=== PATIENT | male | born 1975 | race Caucasian/White ===

== ENCOUNTER 2017-08-15 08:33 | Emergency (ER) | payer OTHER, MEDICAID ==
[~2017-08-15 08:33] MED LIST: LORazepam 2 MG/ML INJ IVP ONE
--- NOTE | 2017-08-15 08:40 | EDPHY ---
H & P Time Seen by Provider: 08/15/17 08:39 HPI/ROS: Chief complaint. Seizure HPI. Patient is a 42-year-old male here by EMS after having a seizure on the sidewalk outside of his work at [employer]. 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 He was somewhat confused afterwards but gradually was able to answer questions for paramedics. He then had a 2nd seizure in the ambulance just prior to arrival. Blood sugar was checked and was adequate. Apparently the patient has had a seizure disorder and takes Dilantin and possibly another medication for seizure control. He told the paramedics that he has a seizure about once per year. ROS Constitutional. no fever/chills, no weakness Eyes. no problems with vision ENT. no sore throat, no nasal drainage Cardiovascular. no chest pain Respiratory. no shortness of breath, no cough Abdominal. no abdominal pain, no nausea/vomiting, no diarrhea . no problems urinating MS. no calf pain/swelling, no neck/back pain, no joint pain Skin. no rash Lymph. no swollen glands Neuro. Seizure Past Medical/Surgical History: Autism, epilepsy Social History: Single, nonsmoker, no alcohol Smoking Status: Never smoked Physical Exam: General Appearance: Seizing well-developed male Eyes: Pupils equal and round no pallor or injection. ENT, Mouth: Mucous membranes are moist. Respiratory: There are no retractions, lungs are clear to auscultation. Cardiovascular: Regular rate and rhythm. Gastrointestinal: Abdomen is soft and nontender, no masses, bowel sounds normal. Neurological: Seizing. Appears to be moving all extremities Skin: Warm and dry, no rashes. Musculoskeletal: Neck is supple nontender. Extremities symmetrical, full range of motion. Psychiatric: Seizing Constitutional: Initial Vital Signs Temperature (C) 36.4 C 08/15/17 08:44 Heart Rate 107 H 08/15/17 08:44 Respiratory Rate 22 H 08/15/17 08:44 Blood Pressure 154/82 H 08/15/17 08:44 O2 Sat (%) 98 08/15/17 08:44 O2 Delivery Mode Room Air O2 (L/minute) 12 Allergies/Adverse Reactions: No Known Allergies Allergy (Verified 11/13/15 09:58) Home Medications: Medication Instructions Recorded Keppra 1000 mg 11/20/15 Medical Decision Making - Diagnostics EKG Interpretation: EKG interpreted by me shows sinus tachycardia with normal interval and axis. QRS is normal there is no significant ST elevation or depression. No arrhythmia. The rate is 101. Imaging Results: Imaging Impressions Chest X-Ray 08/15/17 08:47 Impression: Query airways disease with no significant acute cardiopulmonary abnormality identified. Head CT 08/15/17 08:47 Impression: No evidence for acute intracranial abnormality. Stable atrophy of the cerebellum. Results called and discussed with Sylvester Underwood on 08/15/2017 at 9:32 a.m. cerebellar atrophy. Nonacute otherwise. Reviewed by me and discussed with Dr. Kong One-view chest x-ray interpreted by me is normal Procedures: Seizure precautions. IV Ativan 2 mg. Keppra 1000 mg IV. Fosphenytoin 500 dilantin equivalents IV. ED Course/Re-evaluation: I called and reviewed patient's meds with our pharmacy who checked with [facility]. The patient apparently takes Dilantin 100 mg 3 times daily and Keppra 500 mg twice daily. Re-evaluation 9:30 a.m.. Patient is alert and talking. He says no recent head injury or illness. He claims compliance with his regular medications and agrees that he takes Keppra and Dilantin daily. Denies drug or alcohol intake. Re-evaluation at 10:25 a.m. And patient is resting comfortably. Alert and talking I consulted and discussed the case with Dr. Natasha Elder neurologist at [facility] [address]. She recommends continuing the patient on his regular medications. She will discussed the case with patient's regular neurologist who was not available today. ([phone]) Differential Diagnosis: Seizure in patient with longstanding seizure disorder. It appears that his Dilantin level was low. I considered intracranial bleeding. No evidence for infection and patient is afebrile. He is no longer postictal. He is neurologically intact. No further seizures. - Data Points Laboratory Results: Laboratory Results 08/15/17 08:34 08/15/17 08:34 08/15/17 08/15/17 08:34 08:34 WBC 6.97 10^3/uL 10^3/uL (3.80-9.50) RBC 5.51 10^6/uL 10^6/uL (4.40-6.38) Hgb 17.1 g/dL g/dL (13.7-17.5) Hct 50.2 % % (40.0-51.0) MCV 91.1 fL fL (81.5-99.8) MCH 31.0 pg pg (27.9-34.1) MCHC 34.1 g/dL g/dL (32.4-36.7) RDW 12.7 % % (11.5-15.2) Plt Count 236 10^3/uL 10^3/uL (150-400) MPV 8.6 fL L fL (8.7-11.7) Neut % (Auto) 36.1 % L % (39.3-74.2) Lymph % (Auto) 53.2 % H % (15.0-45.0) [place] % (Auto) 7.0 % % (4.5-13.0) Eos % (Auto) 1.9 % % (0.6-7.6) Baso % (Auto) 0.4 % % (0.3-1.7) Nucleat RBC Rel Count 0.0 % % (0.0-0.2) Absolute Neuts (auto) 2.51 10^3/uL 10^3/uL (1.70-6.50) Absolute Lymphs (auto) 3.71 10^3/uL H 10^3/uL (1.00-3.00) Absolute Monos (auto) 0.49 10^3/uL 10^3/uL (0.30-0.80) Absolute Eos (auto) 0.13 10^3/uL 10^3/uL (0.03-0.40) Absolute Basos (auto) 0.03 10^3/uL 10^3/uL (0.02-0.10) Absolute Nucleated RBC 0.00 10^3/uL 10^3/uL (0-0.01) Immature Gran % 1.4 % H % (0.0-1.1) Immature Gran # 0.10 10^3/uL 10^3/uL (0.00-0.10) Sodium 144 mEq/L mEq/L (135-145) Potassium 4.2 mEq/L mEq/L (3.3-5.0) Chloride 105 mEq/L mEq/L (97-110) Carbon Dioxide 17 mEq/l L mEq/l (22-31) Anion Gap 22 mEq/L H mEq/L (8-16) BUN 18 mg/dL mg/dL (7-23) Creatinine 0.7 mg/dL mg/dL (0.7-1.3) Estimated GFR > 60 Glucose 113 mg/dL H mg/dL (70-100) Calcium 9.2 mg/dL mg/dL (8.5-10.4) Phenytoin 5.6 mcg/mL L mcg/mL (10.0-20.0) Medications Given: Discontinued Medications Sodium Chloride (Ns) 1,000 mls @ 0 mls/hr IV ONCE ONE; Wide Open PRN Reason: Protocol Stop: 08/15/17 08:48 Last Admin: 08/15/17 09:00 Dose: 1,000 mls Fosphenytoin Sodium 500 mgpe/ (Sodium Chloride) 60 mls @ 180 mls/hr IV ONCE ONE Stop: 08/15/17 09:49 Last Admin: 08/15/17 09:29 Dose: 60 mls Levetiracetam 1,000 mg/ Sodium (Chloride) 110 mls @ 440 mls/hr IV EDNOW ONE Stop: 08/15/17 09:44 Last Admin: 08/15/17 09:54 Dose: 110 mls Lorazepam (Ativan Injection) 2 mg IVP EDNOW ONE Stop: 08/15/17 08:34 Last Admin: 08/15/17 08:33 Dose: 2 mg Departure - Departure Disposition: Home, Routine, Self-Care Clinical Impression: Seizure disorder Condition: Good Instructions: Epilepsy (ED) Additional Instructions: Continue to take your seizure medications as directed. Easy activity and avoid driving and other activities that could result in injury if you had a seizure Follow up with your regular neurologist in the next 2-3 days for further evaluation and possible medication adjustment. Return for further seizures, fever, vomiting. Call today and make a follow-up appointment with Dr. Miller Referrals: Patient,NotPresent [Primary Care Provider] - As per Instructions
[2017-08-15] MEDS ORDERED: levETIRAcetam 1000MG/NACL 100 ML IV ONE (08:47)
[2017-08-15] MEDS ORDERED: NS 1,000 ML IV ONE (08:47)
[2017-08-15] MEDS ORDERED: FOSPHENYTOIN SODIUM 500 MGPE/10 ML VIAL IVP ONE (08:48)
--- NOTE | 2017-08-15 08:56 | CPEKG ---
Heart Rate: 101 RR Interval: 594 P-R Interval: 160 QRSD Interval: 88 QT Interval: 364 QTC Interval: 472 P Farina: 66 QRS Farina: 87 T Wave Farina: 62 EKG Severity - OTHERWISE NORMAL ECG - EKG Impression: SINUS TACHYCARDIA Electronically Signed By: Sylvester Underwood 15-Aug-2017 10:51:01
[2017-08-15 08:59] LABS: PLATELET COUNT 236 10^3/uL (150-400)
[2017-08-15] MEDS ORDERED: FOSPHENYTOIN IV ONE (09:30)
[2017-08-15] MEDS ORDERED: levETIRAcetam 1,000 MG in NS 100 ML IV ONE (09:30)
[2017-08-15] MEDS ORDERED: NS IV ONE (09:30)
[2017-08-15 13:11] VITALS: BP 113/76
--- NOTE | 2017-08-15 16:13 | ASDISCHSUM ---
Discharge Information Plan Status:Home with No Needs Medically Cleared to Leave: Discharge Date:08/15/2017 12:55 PM CM D/C Disposition:Home, Routine, Self-Care ADT D/C Disposition:Home, Routine, Self-Care Projected Discharge Date:08/15/2017 12:55 PM Transportation at D/C:Family Discharge Delay Reason: Follow-Up Date:08/15/2017 12:55 PM Discharge Slot: Final Diagnosis: Placement Information Patient Contact Information Contact Name:PRERNA Relationship:Mother Address:[address] [place] [address] City:[facility] Phone: [facility] Code:[place] [address] Email: Financial Information Financial Class:HMO and PPO Plans Primary Plan Desc:[employer]ARIDE[employer]LO [employer] PPO [employer] Primary Plan Number:[id number] Secondary Plan Desc:SANDY GOODMAN Secondary Plan Number:[id number] Assessment Information [facility] CM Progress Note CM Note CM Note Notes: Pt presented to the ED via EMS after being found on the sidewalk on the campus after pt appeared to have a seizure. Pt was on his way to work at [employer]. Pt has autism and epilepsy. Pt's brother, Madan ([phone]) and his , Ilana Ennis ([phone]) arrived to the ED and expressed concerns related to patient's ability to self-administer his anti-seizure medications. Pt's neurologist is Dr Miller at [facility] ([phone]) and he started tapering pt's Dilantin down in hopes to get his seizures managed only by Keppra. Spoke w/Madan and Ilana. Madan and pt's mother, Abby, are pt's legal guardians. Pt lives in a house where he rents a room. Madan states it is not a prison but there is a "house master" or "caregiver" named Jay that is supposed to be ensuring pt is getting his Dilantin and Keppra as prescribed. There is concern over whether Jay is helping pt takes his medications. Pt's Dilantin level are lower than expected even while being on a taper; and they also said they went to pt's room and his medications were in his room and disorganized. Madan and Ilana had conflicting perspectives on pt's ability to take his own medications and care for himself, and also on whether Jay was providing adequate care/assistance as they would expect. Lokesh live in [place] and they are very supportive and involved w/pt (they go to his appts with Dr Miller w/him, take him for outings on the weekends, etc.) and pt's mother Abby lives in [place]. Pt does not have a PCP and does not receive any other skilled or non-skilled homecare assistance. This CM provided pt, Madan and Ilana with a [facility] pamphlet and various lists of non-skilled and skilled private pay homecare services. This CM called and left a voicemail for Dr Miller's RN in order to discuss concerns and outpatient follow-up but have not heard back. CM available for further assistance if needed. Date Signed: 08/15/2017 04:12 PM Electronically Signed By:Candis Bowden RN Intervention Information Intervention Type:Community Resources Date of Service:08/15/2017 03:16 PM Patient Type:Emergency Room Staff Member:ZIA Bowden [place] Hours:0.5 Discipline:Licensing Director Severity: Comment: Intervention Type:Post Acute Communication Date of Service:08/15/2017 03:16 PM Patient Type:Emergency Room Staff Member:ZIA Bowden [place] Hours:0.25 Discipline:Licensing Director Severity: Comment:
== END 2017-08-15 12:55 | disposition home or self-care (01) ==
LOC: EDUNIT#
DX: G40.909 Epilepsy, unspecified, not intractable, without status epilepticus (principal); E86.9 Volume depletion, unspecified
CPT/HCPCS: 96365; J1953; Q2009

== ENCOUNTER 2018-07-01 23:16 | Inpatient (IN) | payer OTHER, MEDICAID ==
[2018-07-01] MEDS ORDERED: NS 1,000 ML IV ONE (23:47)
[2018-07-01 23:53] LABS: PLATELET COUNT 246 10^3/uL (150-400)
--- NOTE | 2018-07-02 00:11 | EDPHY ---
H & P Stated Complaint: SEIZURE Time Seen by Provider: 07/01/18 23:50 HPI/ROS: HPI The patient presents with seizure, brought in by ambulance from his home. History is obtained by his brother at the bedside. The patient has a history of seizure disorder which is longstanding as well as developmental delay. He takes Keppra and Dilantin for this. His last seizure was about 9 months ago. While his Keppra dose has remain unchanged for the last 9 months, his Dilantin dose has decreased as part of a taper. Three days ago he started taking 30 mg of Dilantin twice daily, previously for the last 3 weeks he was taking 30 mg q.a.m. And 60 mg Q p.m.. Family thinks he may have had a seizure last night because there was some blood next to his bed, however he was not postictal, is easily got up and went to work today. In between about 530 and 6:30 p.m. Tonight the patient had a seizure which was witnessed by family members and was tonic clonic. He awoke and was lucid afterwards, was able to take a dose of Ativan at 7:00 p.m.. At 10:00 p.m. He had a 2nd seizure again tonic clonic for several minutes, he had oral trauma. At this time, paramedics were called. The patient has had diarrhea last night and this morning it has not been eating or drinking much. He also lost his wallet recently and has been stressed about this.. REVIEW OF SYSTEMS 10 systems were reviewed and negative with the exception of the elements mentioned in the history of present illness. PMHx: Seizure disorder, developmental delay, followed by at [facility] Hx: Lives at home with his family, works at [employer] PHYSICAL General Appearance: Tired appearing in no acute distress Eyes: Pupils equal and round no pallor or injection ENT, Mouth: Mucous membranes very dry with dried blood on his left cheek with no active bleeding Respiratory: There are no retractions, lungs are clear to auscultation Cardiovascular: Regular rate and rhythm Gastrointestinal: Abdomen is soft and non-tender, no masses, bowel sounds normal Neurological: A&O, moves all extremities Skin: Warm and dry, no rashes Musculoskeletal: Neck is supple non tender Extremities: symmetrical, full range of motion Psychiatric: Patient is sleepy, not agitated Source: Family, Old records Exam Limitations: Clinical condition, Physical impairment - Personal History Current Tetanus Diphtheria and Acellular Pertussis (TDAP): Yes Tetanus Vaccine Date: within 10 years - Medical/Surgical History Hx Asthma: No Hx Chronic Respiratory Disease: No Hx Diabetes: No Hx Cardiac Disease: No Hx Renal Disease: No Hx Cirrhosis: No Hx Alcoholism: No Hx HIV/AIDS: No Hx Splenectomy or Spleen Trauma: No Other PMH: Epilepsy- has caregiver, Developmental delay - Social History Smoking Status: Never smoked Constitutional: Initial Vital Signs Temperature (C) 36.7 C 07/01/18 23:21 Heart Rate 98 07/01/18 23:21 Respiratory Rate 16 07/01/18 23:21 Blood Pressure 111/62 07/01/18 23:21 O2 Sat (%) 96 07/01/18 23:21 O2 Delivery Mode Room Air Allergies/Adverse Reactions: No Known Allergies Allergy (Verified 11/13/15 09:58) Home Medications: Medication Instructions Recorded Dilantin 07/01/18 Lorazepam 07/01/18 levETIRACETAM 07/01/18 Medical Decision Making Differential Diagnosis: This is a 43-year-old man with seizure disorder and developmental delay who lives at home with family who presents with 2 seizures tonight with lucid interval in between. Patient is on the Dilantin taper and had a change in does 3 days ago. He also has had some diarrhea over the last 2 days and has decreased p.o. Intake. Here, the patient has not had any further seizures. I will give him IV fluids and check basic labs. 12:45 a.m.- The patient has had another seizure here in the emergency department lasting for several minutes. Ativan 2 mg administered. Patient's labs have resulted for the most part and his phenytoin level is undetectable as suspected. I will load him with phenytoin as well. Patient's labs demonstrate undetectable phenytoin level, Keppra level is pending , other labs including CBC and chemistries are unremarkable. Given that this is his 3rd seizure today, I will admit him to the hospitalist for further care and monitoring. He did have lucid intervals between the seizures so I do not think he is in status epilepticus at this point. I suspect tapering his phenytoin caused his seizures today. - Data Points Laboratory Results: Laboratory Results 07/01/18 23:20 07/01/18 23:20 07/01/18 07/01/18 07/01/18 23:20 23:20 23:20 WBC 13.47 10^3/uL H 10^3/uL (3.80-9.50) RBC 5.12 10^6/uL 10^6/uL (4.40-6.38) Hgb 15.9 g/dL g/dL (13.7-17.5) Hct 45.5 % % (40.0-51.0) MCV 88.9 fL fL (81.5-99.8) MCH 31.1 pg pg (27.9-34.1) MCHC 34.9 g/dL g/dL (32.4-36.7) RDW 12.6 % % (11.5-15.2) Plt Count 246 10^3/uL 10^3/uL (150-400) MPV 8.8 fL fL (8.7-11.7) Neut % (Auto) 79.0 % H % (39.3-74.2) Lymph % (Auto) 14.7 % L % (15.0-45.0) [place] % (Auto) 5.8 % % (4.5-13.0) Eos % (Auto) 0.0 % L % (0.6-7.6) Baso % (Auto) 0.1 % L % (0.3-1.7) Nucleat RBC Rel Count 0.0 % % (0.0-0.2) Absolute Neuts (auto) 10.64 10^3/uL H 10^3/uL (1.70-6.50) Absolute Lymphs (auto) 1.98 10^3/uL 10^3/uL (1.00-3.00) Absolute Monos (auto) 0.78 10^3/uL 10^3/uL (0.30-0.80) Absolute Eos (auto) 0.00 10^3/uL L 10^3/uL (0.03-0.40) Absolute Basos (auto) 0.02 10^3/uL 10^3/uL (0.02-0.10) Absolute Nucleated RBC 0.00 10^3/uL 10^3/uL (0-0.01) Immature Gran % 0.4 % % (0.0-1.1) Immature Gran # 0.05 10^3/uL 10^3/uL (0.00-0.10) Sodium 140 mEq/L mEq/L (135-145) Potassium 4.0 mEq/L mEq/L (3.5-5.2) Chloride 105 mEq/L mEq/L (97-110) Carbon Dioxide 21 mEq/l L mEq/l (22-31) Anion Gap 14 mEq/L mEq/L (6-14) BUN 14 mg/dL mg/dL (7-23) Creatinine 0.8 mg/dL mg/dL (0.7-1.3) Estimated GFR > 60 Glucose 146 mg/dL H mg/dL (70-100) Calcium 9.7 mg/dL mg/dL (8.5-10.4) Phenytoin < 3.0 mcg/mL L mcg/mL (10.0-20.0) Levetiracetam Pending Medications Given: Discontinued Medications Sodium Chloride (Ns) 1,000 mls @ 0 mls/hr IV ONCE ONE; Wide Open PRN Reason: Protocol Stop: 07/01/18 23:48 Last Admin: 07/02/18 00:05 Dose: 1,000 mls Sodium Chloride (Ns) 1,000 mls @ 0 mls/hr IV ONCE ONE; Wide Open PRN Reason: Protocol Stop: 07/02/18 00:41 Last Admin: 07/02/18 00:46 Dose: 1,000 mls Phenytoin Sodium 1,000 mg/ (Sodium Chloride) 120 mls @ 144 mls/hr IV ONCE ONE Stop: 07/02/18 01:34 Last Admin: 07/02/18 01:18 Dose: 120 mls Lorazepam (Ativan Injection) 2 mg IVP EDNOW ONE Stop: 07/02/18 00:41 Last Admin: 07/02/18 00:46 Dose: 2 mg Departure - Departure Disposition: [facility] Acute Clinical Impression: Seizure disorder, Seizures Condition: Fair
[2018-07-02] MEDS ORDERED: LORazepam 2 MG/ML INJ ONE (00:36)
[2018-07-02] MEDS ORDERED: NS 1,000 ML IV ONE (00:40)
[2018-07-02] MEDS ORDERED: LORazepam 2 MG/ML INJ IVP ONE (00:40)
[2018-07-02] MEDS ORDERED: PHENYTOIN SODIUM 1,000 MG in NS 100 ML IV ONE (00:45)
[2018-07-02] MEDS ORDERED: ONDANSETRON DISINTEGRATING 4 MG TAB PO PRN (01:15)
[2018-07-02] MEDS ORDERED: ACETAMINOPHEN 325 MG TAB PO PRN (01:15)
[2018-07-02] MEDS ORDERED: ONDANSETRON 4 MG/2 ML VIAL IVP PRN (01:15)
--- NOTE | 2018-07-02 01:38 | PDGENHP ---
History and Physical - Chief Complaint Seizures - History of Present Illness 43 yo M w/ hx of cognitive delay and seizure d/o presents after a seizure. 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 Then Saturday his roommate found him on the ground after he presumably had an unwitnessed seizure. Tonight around 10 PM he has a witnessed, generalized tonic-clonic seizure and he was brought in to the ED for evaluation. Per his brother that seizure only lasted a minute or two. After arrival in the ED he had another generalized tonic-clonic seizure that terminated after 2 minutes with Ativan 2 mg IV. During my evaluation he is post-ictal and minimally interactive. His brother is at bedside who details that the patient has been undergoing a phenytoin taper over the last several months. He has been seizure free since October of 2017. At that time his medication dosing was phenytoin 200 mg total daily and Keppra 2.5 g total daily. This has been tapered very slowly, with the last step being 90->60 mg total daily (30 BID) on 06/29. The taper is being attempted due to dental issues as an adverse side effect of phenytoin. Case discussed with ED physician Dr. Kelly; records reviewed and summarized above. History Information - Allergies/Home Medication List Allergies/Adverse Reactions: No Known Allergies Allergy (Verified 11/13/15 09:58) Home Medications: Dilantin 07/01/18 [Last Taken Unknown] Lorazepam 07/01/18 [Last Taken Unknown] levETIRACETAM 07/01/18 [Last Taken Unknown] I have personally reviewed and updated: family history, medical history - Past Medical History seizures Additional medical history: Cognitive delay due to anoxic brain injury as a child - Surgical History Additional surgical history: Retinal surgery - Family History Additional family history: Asked, denies - Social History Smoking Status: Never smoked Review of Systems Review of Systems: Unable to obtain as post-ictal Physical Exam Physical Exam: Temp Pulse Resp BP Pulse Ox 37.1 C 105 H 16 105/44 L 90 L 07/02/18 01:02 07/02/18 01:02 07/02/18 01:02 07/02/18 01:02 07/02/18 01:02 Constitutional: other (Sedated, minimally interactive) Eyes: PERRL, anicteric sclera Ears, Nose, Mouth, Throat: moist mucous membranes, other (Blood around gums) Cardiovascular: regular rate and rhythym, no murmur, rub, or gallop Respiratory: no respiratory distress, no rales or rhonchi Skin: warm, normal color Neurologic: other (Sedated, post-ictal) Psychiatric: other (Sedated, post-ictal) Lab Data & Imaging Review 07/01/18 23:20 07/01/18 23:20 WBC 13.47 10^3/uL (3.80-9.50) H 07/01/18 23:20 RBC 5.12 10^6/uL (4.40-6.38) 07/01/18 23:20 Hgb 15.9 g/dL (13.7-17.5) 07/01/18 23:20 Hct 45.5 % (40.0-51.0) 07/01/18 23:20 MCV 88.9 fL (81.5-99.8) 07/01/18 23:20 MCH 31.1 pg (27.9-34.1) 07/01/18 23:20 MCHC 34.9 g/dL (32.4-36.7) 07/01/18 23:20 RDW 12.6 % (11.5-15.2) 07/01/18 23:20 Plt Count 246 10^3/uL (150-400) 07/01/18 23:20 MPV 8.8 fL (8.7-11.7) 07/01/18 23:20 Neut % (Auto) 79.0 % (39.3-74.2) H 07/01/18 23:20 Lymph % (Auto) 14.7 % (15.0-45.0) L 07/01/18 23:20 [place] % (Auto) 5.8 % (4.5-13.0) 07/01/18 23:20 Eos % (Auto) 0.0 % (0.6-7.6) L 07/01/18 23:20 Baso % (Auto) 0.1 % (0.3-1.7) L 07/01/18 23:20 Nucleat RBC Rel Count 0.0 % (0.0-0.2) 04/23/19 23:20 Absolute Neuts (auto) 10.64 10^3/uL (1.70-6.50) H 07/01/18 23:20 Absolute Lymphs (auto) 1.98 10^3/uL (1.00-3.00) 07/01/18 23:20 Absolute Monos (auto) 0.78 10^3/uL (0.30-0.80) 07/01/18 23:20 Absolute Eos (auto) 0.00 10^3/uL (0.03-0.40) L 07/01/18 23:20 Absolute Basos (auto) 0.02 10^3/uL (0.02-0.10) 07/01/18 23:20 Absolute Nucleated RBC 0.00 10^3/uL (0-0.01) 07/01/18 23:20 Immature Gran % 0.4 % (0.0-1.1) 07/01/18 23:20 Immature Gran # 0.05 10^3/uL (0.00-0.10) 07/01/18 23:20 Sodium 140 mEq/L (135-145) 07/01/18 23:20 Potassium 4.0 mEq/L (3.5-5.2) 07/01/18 23:20 Chloride 105 mEq/L (97-110) 07/01/18 23:20 Carbon Dioxide 21 mEq/l (22-31) L 07/01/18 23:20 Anion Gap 14 mEq/L (6-14) 07/01/18 23:20 BUN 14 mg/dL (7-23) 07/01/18 23:20 Creatinine 0.8 mg/dL (0.7-1.3) 07/01/18 23:20 Estimated GFR > 60 07/01/18 23:20 Glucose 146 mg/dL (70-100) H 07/01/18 23:20 Calcium 9.7 mg/dL (8.5-10.4) 07/01/18 23:20 Phenytoin < 3.0 mcg/mL (10.0-20.0) L 07/01/18 23:20 Assessment & Plan Assessment: 43 yo M w/ hx of cognitive delay and seizure d/o presents after several seizures. Plan: 1. Seizure d/o, uncontrolled - Currently undergoing phenytoin taper with latest stepdown in dosage occurring 06/29. Phenytoin level was undetectable on admission. His most recent regimen is Keppra 1.25 g BID and phenytoin 30 mg BID. He suffered at least 2, possibly as many as 4 seizures over the last 24 hours. - Admit for observation - S/p phenytoin 1g IV x1 in the ED - Continue Keppra pending reconciliation - Neurology consult placed - Seizure precautions 2. Cognitive delay - 2/2 anoxic brain injury as a toddler. 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 3. Leukocytosis - Presumed reactive from multiple seizures. - Monitor CBC 4. Metabolic acidosis - Likely from seizure activity. - S/p 2 L NS - Repeat BMP in the morning Diet - Regular Code - Full Ppx - LMWH Dispo - Admit under observation status
[2018-07-02 05:20] LABS: PLATELET COUNT 190 10^3/uL (150-400)
[2018-07-02] MEDS ORDERED: Phenytoin Sodium Extended [Dilantin] 30 MG PO SCH ×2 (10:00→21:00)
[2018-07-02] MEDS: levETIRAcetam 250 MG TAB PO SCH ×2 (10:02→11:55)
[2018-07-02] MEDS: levETIRAcetam 500 MG TAB PO SCH ×2 (10:02→11:55)
[2018-07-02] MEDS: ENOXAPARIN 40 MG/0.4 ML SYR SC SCH (12:23)
--- NOTE | 2018-07-02 13:19 | HOSPPROG ---
Hospitalist Progress Note Assessment/Plan: 43 yo M w/ hx of cognitive delay and seizure d/o admitted after several seizures following Phenytoin taper # Seizure d/o, uncontrolled - Currently undergoing phenytoin taper with latest stepdown in dosage occurring 06/29. Phenytoin level was undetectable on admission. - S/p phenytoin 1g IV x1 in the ED - Received home meds this morning - Awaiting Neurology consult - Seizure precautions #Post Ictal State #Cough, Leukocytosis: possible Aspiration, will check CXR #Cognitive delay - 2/2 anoxic brain injury as a toddler. 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 # Metabolic acidosis - Likely from seizure activity. - repeat bmp in a.m. -cont IVF Diet - Regular Code - Full Ppx - LMWH Dispo - Keep overnight Subjective: + cough. Not following commands. Objective: Vital Signs Temp Pulse Resp BP Pulse Ox 36.9 C 97 12 112/50 L 92 07/02/18 11:16 07/02/18 11:16 07/02/18 11:16 07/02/18 11:16 07/02/18 11:16 Laboratory Results 07/02/18 04:50 07/02/18 04:50 07/01/18 07/02/18 07/03/18 05:59 05:59 05:59 Intake Total 1999 Balance 1999 - Physical Exam Eyes: PERRL Ears, Nose, Mouth, Throat: moist mucous membranes Cardiovascular: regular rate and rhythym Respiratory: no respiratory distress, clear to auscultation Gastrointestinal: normoactive bowel sounds Skin: warm Neurologic: No AAOx3 Psychiatric: encephalopathic ICD10 Worksheet Patient Problems: Problems Problem Status Onset Seizure disorder Acute Seizures Acute
[2018-07-02] MEDS: NS W/ 20 KCl/L 1,000 ML IV SCH (13:57)
--- NOTE | 2018-07-02 20:35 | GCON ---
[f rep st] CONSULTATION NEUROLOGY CONSULTATION CHIEF COMPLAINT: Breakthrough seizures in the setting of epilepsy. HISTORY OF PRESENT ILLNESS: The patient is a 43-year-old gentleman with static encephalopathy and a symptomatic seizure disorder who is followed by Dr. Gustavo Miller at [facility] Division of Epilepsy. He had been going on a very slow titration of decreasing Dilantin while being maintained on Keppra 2500 mg daily. When he went down to 30 mg twice a day of Dilantin on Saturday. Around 36 hours later, he began having a cluster of 4 generalized tonic-clonic seizures and was admitted for stabilization. He was given a gram of IV Dilantin in the ED and has remained postictal and without further seizures. The underlying etiology for his problems apparently was secondary to an anoxic brain injury as a toddler. I had a long discussion with his brother over the phone regarding all of the above history and his history at [facility]. REVIEW OF SYSTEMS: Done with his brother and only pertinent to HPI. For past medical history, social history, family history, home medications, allergies, see Dr. Jordan's H and P. PHYSICAL EXAM: VITAL SIGNS: Temperature is 37.6, afebrile, respirations 12-14 , O2 sats 95%. GENERAL: The patient is somnolent and postictal, difficult to arouse just to voice. No convulsive or subtle convulsive activity in my presence. IMPRESSION/PLAN: 1. Static encephalopathy/developmental delay. 2. Seizure disorder. Plan was reviewed with documentation from Dr. Miller's plan and with his brother on the phone. Essentially, I recommend we increase his Keppra to 1500 mg b.i.d. It can be given IV for the time being while he is somnolent and postictal. I recommend we go back to the previous dose of Dilantin before his breakthrough seizures at 30 mg in the morning plus 60 mg in the evening (also can be given IV while post-ictal). I did discuss potential risks, benefits, and alternatives of the Keppra's dosage increase with his brother, including the risks of irritability, mood changes, depression, suicidal or homicidal ideation. In addition, the patient is on indefinite driving restrictions and seizure precautions. They are agreeable. The patient does not drive. Finally, he will follow up with his primary neurologist, Dr. Gustavo Miller, in 2 to 4 weeks at the [facility] for further adjustment of medications. No further recommendations now. We will continue to follow up as needed. Please do not hesitate to call if there are any questions or changes in this patient's neurologic status. Seventy total minutes' floor time today; over 50% in direct counseling with the patient's family and coordination of care. /[id number]/MODL MTDD
[2018-07-02] MEDS: levETIRAcetam 1500MG/NACL 100 ML IV SCH (20:50)
[2018-07-02] MEDS ORDERED: PHENYTOIN SODIUM EXTENDED 100 MG CAP PO SCH (21:00)
[2018-07-02] MEDS: PHENYTOIN SODIUM 100 MG/2 ML VIAL IVP SCH (21:14)
[2018-07-03] MEDS: NS W/ 20 KCl/L 1,000 ML IV SCH (01:29)
[2018-07-03 05:48] LABS: PLATELET COUNT 172 10^3/uL (150-400)
[2018-07-03] MEDS ORDERED: Phenytoin Sodium Extended [Dilantin] 30 MG PO SCH (09:00)
[2018-07-03] MEDS: ENOXAPARIN 40 MG/0.4 ML SYR SC SCH (09:01)
[2018-07-03] MEDS: levETIRAcetam 1500MG/NACL 100 ML IV SCH ×2 (09:02→22:02)
[2018-07-03] MEDS: PHENYTOIN SODIUM 100 MG/2 ML VIAL IVP SCH ×2 (09:02→22:25)
--- NOTE | 2018-07-03 10:16 | ASMTCMCOM ---
CM Note CM Note Notes: Patient admitted for breakthrough seizure activity in the setting of a Dilantin taper per his neurologist at [facility] Dr Gustavo Miller. He has a hx of seizures r/t an anoxic brain injury as a child. I spoke with his brother/CURTIS Holguin. 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 He likes to socialize and is involved with the [facility]'s [employer] program. He does have a live-in caregiver named Jay who prepares meals and helps with a few things. I anticipated that patient will d/c home independently w f/u with Dr Miller in 2-4 weeks. Neurology is following. CM available for any d/c needs. Date Signed: 07/03/2018 10:15 AM Electronically Signed By:Bridgette Bravo RN
--- NOTE | 2018-07-03 11:22 | NEUROPROG ---
Assessment: 1. Static encephalopathy 2. Seizure disorder 3. Breakthrough seizure cluster The patient remained seizure-free on Keppra 1500 mg twice daily and Dilantin 30 mg the morning plus 60 mg in the evening. He remains postictal. No further seizures. Once he is more awake and alert from his cluster of seizures, he will likely discharge home and a follow-up with Dr. Miller in 2-4 weeks for ongoing management of his anti seizure medications. No further recommendations. We will continue to follow up p.r.n. Please do not hesitate to call for any questions or changes in this patient's neurologic status. The patient's postictal duration may be more protracted in the setting of static encephalopathy. Subjective: No further seizures Objective: Vital Signs Temp Pulse Resp BP Pulse Ox 37.0 C 85 16 100/56 L 93 07/03/18 08:00 07/03/18 08:00 07/03/18 08:00 07/03/18 08:00 07/03/18 08:00 Laboratory Results 07/03/18 04:58 07/03/18 04:58 07/02/18 07/03/18 07/04/18 05:59 05:59 05:59 Intake Total 1999 633 Balance 1999 633 The patient aroused to voice today and was more alert than yesterday. 35 total minutes floor time; over 50% counseling and coordination of care. Allergies/Adverse Reactions: No Known Allergies Allergy (Verified 11/13/15 09:58)
--- NOTE | 2018-07-03 14:02 | HOSPPROG ---
Hospitalist Progress Note Assessment/Plan: 43 yo M w/ hx of cognitive delay and seizure d/o admitted after several seizures following Phenytoin taper # Seizure d/o, uncontrolled - Currently undergoing phenytoin taper with latest stepdown in dosage occurring 06/29. Phenytoin level was undetectable on admission. - S/p phenytoin 1g IV x1 in the ED - Neuro following - Seizure precautions #Post Ictal State #Cough, Leukocytosis: improving #Cognitive delay - 2/2 anoxic brain injury as a toddler. 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 # Metabolic acidosis - Likely from seizure activity. - repeat bmp in a.m. -cont IVF Diet - Regular Code - Full Ppx - LMWH Plan: cont IV seizure meds until able to take PO cont IVF for now straight cath x 1 Subjective: following some commands. not taking po. Objective: Vital Signs Temp Pulse Resp BP Pulse Ox 37.2 C 90 16 100/55 L 91 L 07/03/18 11:41 07/03/18 11:41 07/03/18 11:41 07/03/18 11:41 07/03/18 11:41 Laboratory Results 07/03/18 04:58 07/03/18 04:58 07/02/18 07/03/18 07/04/18 05:59 05:59 05:59 Intake Total 1999 633 Balance 1999 633 - Physical Exam Constitutional: no apparent distress Eyes: PERRL, EOMI Ears, Nose, Mouth, Throat: moist mucous membranes, hearing normal Cardiovascular: regular rate and rhythym Respiratory: no respiratory distress, No rhonchi Gastrointestinal: normoactive bowel sounds, soft, non-tender abdomen Skin: warm Neurologic: No AAOx3 Psychiatric: encephalopathic Lymph, Heme, Immunologic: petechiae ICD10 Worksheet Patient Problems: Problems Problem Status Onset Seizure disorder Acute Seizures Acute
--- NOTE | 2018-07-03 18:05 | PDMN ---
Medical Necessity Medical necessity: Change to inpt as of 07/03/18 @ 17:38, meets inpt criteria per MD order and [facility] M-[id number], Seizure, A-1 days: Admission is indicated for altered mental status that is severe or persistent, pt w/persistent AMS due to post ictal state, cont IV seizure meds until able to take PO. 43 y/o w/static encephalopathy/developmental delay and seizure disorder admitted after cluster of seizures following Phentoin taper. Pt following some commands but not back to baseline, unable to take PO, cont IVF and IV seizure meds, neuro following, repeat BMP in AM.. Est LOS>2MN for ongoing eval/management of above.
[2018-07-04] MEDS: PHENYTOIN SODIUM 100 MG/2 ML VIAL IVP SCH (08:13)
[2018-07-04] MEDS: levETIRAcetam 1500MG/NACL 100 ML IV SCH (08:13)
[2018-07-04] MEDS: ENOXAPARIN 40 MG/0.4 ML SYR SC SCH (08:13)
--- NOTE | 2018-07-04 09:42 | NEUROPROG ---
Assessment: 1. Static encephalopathy 2. Seizure disorder 3. Breakthrough seizure cluster The patient remained seizure-free on Keppra 1500 mg twice daily and Dilantin 30 mg the morning plus 60 mg in the evening. More alert today. No further seizures. he will likely discharge in near future and a follow-up with Dr. Miller in 2-4 weeks for ongoing management of his anti seizure medications. No further recommendations. We will continue to follow up p.r.n. Please do not hesitate to call for any questions or changes in this patient's neurologic status. The patient's postictal duration may be more protracted in the setting of static encephalopathy. Subjective: no seizures more awake Objective: Vital Signs Temp Pulse Resp BP Pulse Ox 36.8 C 83 16 129/74 H 93 07/04/18 07:46 07/04/18 07:46 07/04/18 07:46 07/04/18 07:46 07/04/18 07:46 07/03/18 07/04/18 07/05/18 05:59 05:59 05:59 Output Total 1100 300 Balance -1100 -300 Patient is more awake today He was interacting with the nursing team No convulsive movements in my presence 35 total minutes floor time; over 50% counseling and coordination of care. Allergies/Adverse Reactions: No Known Allergies Allergy (Verified 11/13/15 09:58)
--- NOTE | 2018-07-04 13:37 | PDDCSUM ---
Discharge Summary Discharge Summary: 43 yo M w/ hx of cognitive delay and seizure d/o admitted after several seizures following Phenytoin taper. The pt was admitted. Neurology consulted. He was post ictal with static encephalopathy. He is now back to baseline. Meds were adjusted. DDX: # Seizure d/o with breakthrough seizure cluster - was undergoing phenytoin taper with latest stepdown in dosage occurring 06/29. Phenytoin level was undetectable on admission. - S/p phenytoin 1g IV x1 in the ED - Neuro following - Seizure precautions -Meds adjusted: Keppra 1500 mg twice daily and Dilantin 30 mg the morning plus 60 mg in the evening. -f/u: with Neuro (Dr. Miller) in 2-4 weeks #Post Ictal State, resolved #Cough, Leukocytosis: resolved #Cognitive delay - 2/2 anoxic brain injury as a toddler. 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 # Metabolic acidosis - resolved Exam: NAD AAOX3 RRR CTA B S/NT/ND MEDS: SEE MED REC TOTAL TIME SPENT ON D/C IS 35 MINS
--- NOTE | 2018-07-04 13:49 | ASMTLACE ---
ALISE Length of stay for Answers: 1 day current admission Acuity / Level of Answers: Yes Care: Did the patient have an inpatient admission? Comorbidities - select Answers: Other Notes: Seizure all that apply disorder; Developmental delay # of Emergency department Answers: 1-2 visits in the last 6 months Score: 6 Date Signed: 07/04/2018 01:49 PM Electronically Signed By:Bridgette Bravo RN
[2018-07-04 15:13] VITALS: BP 130/82
== END 2018-07-04 19:05 | disposition home or self-care (01) | DRG 101 ==
LOC: EDUNIT# → INTOOBSV 07-02 01:15 → F1N 07-02 02:00 → OBSVTOIN 07-03 17:38
PROVIDERS: ADMIT Student in an Organized Health Care Education/Training Program; ATTEND Student in an Organized Health Care Education/Training Program
DX: G40.909 Epilepsy, unspecified, not intractable, without status epilepticus (principal); E87.2 Acidosis; R05 Cough; Z87.820 Personal history of traumatic brain injury; F81.9 Developmental disorder of scholastic skills, unspecified
CPT/HCPCS: 80177-90; 96365; 97116-GP; 97162-GP; G0378; G0480; J1165; J1650; J1953; J2060